=== PATIENT | female | born 1980 | race African-American/Black ===

== ENCOUNTER 2020-12-08 09:29 | Emergency (ER) | payer OTHER ==
[~2020-12-08] VITALS: Ht 172.7 cm; Wt 56.0 kg
[~2020-12-08 09:29] MED LIST: ASPI325T8 PO; CLONAZEPAM1 MG PO; CYCL10TA2 PO; OXYC1TAB22 PO
[2020-12-08 10:10] VITALS: BP 135/72
[2020-12-08] MEDS ORDERED: ONDA4TAB12 PO (11:01)
--- NOTE | 2020-12-08 11:02 | PHYS DOC ---
Past Medical History Additional Past Medical Histor: PULMONARY EMBOLISM, RIGHT TIB/FIB FX Past Surgical History: Additional Past Surgical Histo: RIGHT TIB/FIB SX Smoking Status: Current Every Day Smoker Additional Information: 5 CIGS/DAY Alcohol Use: Occasionally General Adult EDM: Chief Complaint: CONSTIPATION HPI: HPI: Patient is a 40 year old female presents to the emergency department complaining of constipation problems for the past 2 weeks. Patient reports her last bowel movement was 2 weeks ago. Patient reports on the 16 of this month she had surgery on her tibia related to a fall which resulted in a fracture. Patient reports she has been on oxycodone, Flexeril, and [id number]-hvecapx NSAIDs for pain management, patient suspects this is why she is constipated. Patient co mplains of generalized abdominal discomfort. Patient reports she has used suppositories, drink prune juice, used euyt-[id number]-[id number] stool softeners, and tried MiraLAX once yesterday without results. Patient reports she called her orthopedic surgeon Dr. Del Rosario who recommended she come to the emergency department for evaluation. Patient denies allergies to medications, reports she is on no other prescription medications other than the pain medicines ordered for her acute right leg pain from surgery. Patient denies chest pain or shortness of breath, vomiting however does report some nausea today. Patient denies fever or chills, rashes to her skin, urinary tract infection type signs and symptoms, denies vaginal discharge. Patient reports normal LMP 7 days ago with normal directional flow. Patient denies any other physical complaints or physical concerns. Review of Systems: Review of Systems: 14 body systems of review of systems have been reviewed. See HPI for pertinent positives and negative responses, otherwise all other systems are negative, nonpertinent or noncontributory. Constitutional: Negative except as outlined in HPI above. Skin: Negative except as outlined in HPI above. Eyes: Negative except as outlined in HPI above. HENT: Negative except as outlined in HPI above. Respiratory: Negative except as outlined in HPI above. Cardiovascular: Negative except as outlined in HPI above. GI: Negative except as outlined in HPI above. : Negative except as outlined in HPI above. Musculoskeletal: Negative except as outlined in HPI above. Integument: Negative except as outlined in HPI above. Neurologic: Negative except as outlined in HPI above. Endocrine: Negative except as outlined in HPI above. Lymphatic: Negative except as outlined in HPI above. Psychiatric: Negative except as outlined in HPI above. Heart Score: C/O Chest Pain: No Risk Factors: Risk Factors: DM, Current or recent (<one month) smoker, HTN, HLP, family history of CAD, obesity. Risk Scores: Score 0 - 3: 2.5% MACE over next 6 weeks - Discharge Home Score 4 - 6: 20.3% MACE over next 6 weeks - Admit for Clinical Observation Score 7 - 10: 72.7% MACE over next 6 weeks - Early Invasive Strategies Allergies: Allergies: Allergies Coded Allergies Type Severity Reaction Last Updated Verified No Known Drug Allergies 11/25/20 No Physical Exam: PE: Constitutional: Well developed, well nourished, no acute distress, non-toxic appearance. Patient appears uncomfortable however is nontoxic in appearance HENT: Normocephalic, atraumatic. Eyes: Conjunctiva normal, no discharge. Neck: Normal range of motion. Cardiovascular: Distal cap refill less than 2 seconds, no cyanosis appreciated. Lungs & Thorax: Patient is in no respiratory distress, no adventitious lung sounds appreciated. Abdomen: Bowel sounds normal, soft, no masses, no pulsatile masses. No bruising or skin discoloration of the abdomen. No abnormalities of the abdomen appreciated. Skin: Warm, dry, no erythema, no rash. Back: No tenderness, no CVA tenderness. Extremities: No tenderness, no cyanosis, no clubbing, ROM intact, no edema. Patient does have leg brace with Carlton wrap bandage to right lower extremity placed by orthopedic surgery, did not remove for examination. Patient did not report any changes and discomfort or loss of sensation to extremity. Distal cap refills less than 2 seconds, will leave in place for orthopedic surgeon therapy. Neurologic: Alert and oriented X 3, normal motor function, normal sensory function, no focal deficits noted. Psychologic: Affect normal, judgement normal, mood normal. Current Patient Data: Labs: Laboratory Tests Test 12/08/20 09:52 POC Urine HCG, Qualitative Hcg negative (Negative) Vital Signs: Vital Signs Date Time Temp Pulse Resp B/P (MAP) Pulse Ox O2 Delivery O2 Flow Rate FiO2 12/08/20 10:10 99.1 120 18 135/72 (93) 98 Room Air 99.1 EKG: EKG: [] Radiology/Procedures: Radiology/Procedures: [] Course & Med Decision Making: Course & Med Decision Making Pertinent Labs and Imaging studies reviewed. (See chart for details) 40-year-old female, vital signs reviewed, presents to the emergency department concerning constipation problems since taking pain medications for her acute right leg pain status post surgical repair of fractured tibia. Patient's physical examination and explanation of events consistent with constipation, it was noted patient's triage pulse was 120 however during physical examination patient's pulse was 92 per palpation and consistent with pleth wave on O2 sat monitor. Patient becomes easily upset when discussing presentation and outpatient care, it was noted that heart rate does elevate when she becomes upset. Most likely triage elevated pulse is related to this. Discussed with patient will give oral Zofran for nausea, will prescribe mag citrate for constipation, discussed use of magnesium citrate for constipation, strict follow-up with primary care physician Dr. Flores this week. Increase fluid intake and natural fiber foods to assist with normal bowel movements. Discussed with the patient all findings and diagnostic testing as well as the need to follow-up with their primary care provider for further evaluation and treatment or return to the ED if any new or worsening symptoms. Strict return precautions were also discussed at length, the patient voiced understanding and agreement with the discharge planning. The patient was nontoxic in appearance, in no apparent distress, and hemodynamically stable at the time of disposition. [place] Disclaimer: [place] Disclaimer: This electronic medical record was generated, in whole or in part, using a voice recognition dictation system. Departure Departure Impression: Primary Impression: Constipation Qualified Codes: K59.00 - Constipation, unspecified Additional Impression: Nausea Disposition: HOME / SELF CARE / HOMELESS Condition: GOOD Referrals: ALVARADO FLORES MD (PCP) Patient Instructions: Constipation, Adult, Nausea, Adult Additional Instructions: You were seen in the emergency department for constipation and nausea. As we discussed this is most likely related to your pain medication therapy for your fractured leg. I am prescribing you a medication called magnesium citrate to drink, as we discussed this may increase abdominal cramping while it is moving through your bowels to assist with a bowel movement, you should experience abdominal discomfort relief once the medication has worked. I am also prescribing you an orally dissolving antinausea medication called Zofran to assist with your nausea. Please increase your fluid intake and natural fiber foods to assist with normal bowel movements in the future. As we discussed please follow-up with your primary care physician Dr. Flores to let her know of your constipation problems while you are on pain therapy as there are medications she can consider to assist with normal bowel movements as well. Please return to the emergency department for nausea and vomiting not controlled with nausea medication, or blood in your vomitus. Thank you for visiting our Emergency Department. It was a pleasure taking care of you today in the emergency department and we appreciate you trusting us with your care. If any additional problems come up don't hesitate to return to visit us. Please follow up with your primary care provider so they can plan additional care if needed and know about the problem that you had. If symptoms worsen come back to the Emergency Department. Any concerning symptoms that start such as chest pain, shortness of air, weakness or numbness on one side of the body, running high fevers or any other concerning symptoms return to the ER. EMERGENCY DEPARTMENT GENERAL DISCHARGE INSTRUCTIONS Thank you for coming to [facility] Emergency Department (ED) today and trusting us with you care. We trust that you had a positive experience in our Emergency Department. If you wish to speak to the department management, you may call the Director at [phone]. YOUR FOLLOW UP INSTRUCTIONS ARE FOLLOWS: 1. Do you have a private Doctor? If you do not have a private doctor, please ask for a resource list of physicians or clinics that may be able to assist you with follow up care. 2. The Emergency Physicain has interpreted your x-rays. The X-Ray specialist will also review them. If there is a change in the findings, you will be notified in 48 hours when at all possible. 3. A lab test or culture has been done, your results will be reviewed and you will be notified if you need a change in treatment. ADDITIONAL INSTRUCTIONS AND INFORMATION: 1. Your care today has been supervised by a physician who is specially trained in emergency care. Many problems require more than one evaluation for a complete diagnosis and treatment. We recommend that you schedule your follow up appointment as recommended to ensure complete treatment of you illness or injury. If you are unable to obtain follow up care and continue to have a problem, or if your condition worsens, we recommend that you return to the ED. 2. We are not able to safely determine your condition over the phone nor are we able to give sound medical advice over the phone. For these safety reasons, if you call for medical advice we will ask you to come to the ED for further evaluation. 3. If you have any questions regarding these discharge instructions please call the ED at [phone]. SAFETY INFORMATION: In the interest of safety, wellness, and injury prevention; we encourage you to wear your sealbelt, if you smoke; quite smoking, and we encourage family to use a protective helmet for bicycling and other sporting events that present an increased risk for head injury. IF YOUR SYMPTOMS WORSEN OR NEW SYMPTOMS DEVELOP, OR YOU HAVE CONCERNS ABOUT YOUR CONDITION; OR IF YOUR CONDITION WORSENS WHILE YOU ARE WAITING FOR YOUR FOLLOW UP APPOINTMENT; EITHER CONTACT YOUR PRIMARY CARE DOCTOR, THE PHYSICIAN WHOSE NAME AND NUMBER YOU WERE GIVEN, OR RETURN TO THE ED IMMEDIATELY. Scripts Ondansetron (ONDANSETRON ODT) 4 Mg Tab.rapdis 1 TAB PO PRN Q6-8HRS for nausea, #16 TAB 0 Refills Prov: CORINNE MICHEL APRN 12/08/20 CORINNE MICHEL APRN Dec 08, 2020 11:02
[2020-12-08] MEDS ORDERED: MAGNESIUM CITRATE 296 ML SOLUTION. PO ONE (11:15)
[2020-12-08] MEDS ORDERED: ONDANSETRON ODT 4 MG TAB.RAPDIS. PO ONE (11:15)
== END 2020-12-08 11:09 | disposition home or self-care (01) ==
LOC: ER 09:29
DX: K59.00 Constipation, unspecified (principal); R10.84 Generalized abdominal pain; R11.0 Nausea; M79.604 Pain in right leg; F17.210 Nicotine dependence, cigarettes, uncomplicated; Z86.711 Personal history of pulmonary embolism
CPT/HCPCS: 81025; 99283